=== PATIENT | female | born 1965 | race Two or more races ===

== ENCOUNTER → 2020-01-09 | Outpatient (CLI) | payer OTHER ==
[2020-01-10 10:42] LABS: Candida species (DNA Probe) Negative (NEGATIVE); G. vaginalis (DNA Probe) Positive (NEGATIVE); T. vaginalis (DNA Probe) Negative (NEGATIVE)
== END | disposition home or self-care (01) ==
LOC: LAB SHORT 15:00 → LAB 15:00
PROVIDERS: Obstetrics & Gynecology
DX: N76.0 Acute vaginitis (principal)
CPT/HCPCS: 87480; 87510; 87660

== ENCOUNTER → 2020-02-01 | Outpatient (CLI) | payer OTHER ==
[2020-02-02 08:46] LABS: Candida species (DNA Probe) Negative (NEGATIVE); G. vaginalis (DNA Probe) Negative (NEGATIVE); T. vaginalis (DNA Probe) Negative (NEGATIVE)
== END | disposition home or self-care (01) ==
LOC: LAB SHORT 18:42 → LAB 18:42
PROVIDERS: Obstetrics & Gynecology
DX: N95.2 Postmenopausal atrophic vaginitis (principal)
CPT/HCPCS: 87480; 87510; 87660